=== PATIENT | male | born 1980 | race Caucasian/White ===

== ENCOUNTER 2020-12-01 11:19 | Day surgery (SDC) | payer OTHER, SELFPAY ==
[~2020-12-01] VITALS: Ht 180.3 cm; Wt 90.7 kg
[2020-12-01] MEDS ORDERED: BUPIVACAINE-MPF/EPI 0.25% 10 ML VIAL INJ ONE (12:53)
[2020-12-01] MEDS ORDERED: HYDROGEN PEROXIDE 3% 240 ML BTL TP ONE (12:53)
[2020-12-01] MEDS ORDERED: LIDOCAINE MPF 1% 10 ML ONE (12:53)
[2020-12-01] MEDS ORDERED: NEOSTIGMINE 1:1000 10 MG/10 ML VIAL ONE (13:28)
[2020-12-01] MEDS ORDERED: ROCURONIUM 50 MG/5 ML VIAL IV ONE (13:28)
[2020-12-01] MEDS ORDERED: LIDOCAINE 2% 100 MG/5 ML SYR IVP ONE (13:28)
[2020-12-01] MEDS ORDERED: KETOROLAC 30 MG/ML VIAL ONE (13:28)
[2020-12-01] MEDS ORDERED: GLYCOPYRROLATE 0.2 MG/ML VIAL ONE (13:28)
[2020-12-01] MEDS ORDERED: SUCCINYLCHOLINE CHLORIDE 200 MG/10 ML VIAL IVP ONE (13:28)
[2020-12-01] MEDS ORDERED: ONDANSETRON 4 MG/2 ML VIAL ONE (13:28)
[2020-12-01] MEDS ORDERED: PROPOFOL 200 MG/20 ML VIAL IV ONE (13:28)
[2020-12-01] MEDS ORDERED: fentaNYL citrate 0.05 MG/ML VIAL ONE (13:28)
[2020-12-01] MEDS ORDERED: MEPERIDINE 25 MG/ML SYR ONE (13:28)
[2020-12-01] MEDS ORDERED: DEXAMETHASONE 4 MG/ML VIAL ONE (13:28)
[2020-12-01] MEDS ORDERED: SEVOFLURANE 250 ML BTL INH ONE (13:28)
[2020-12-01] MEDS ORDERED: MEPERIDINE 25 MG/ML SYR IVP PRN (14:20)
[2020-12-01] MEDS ORDERED: ONDANSETRON 4 MG/2 ML VIAL IVP PRN (14:20)
[2020-12-01] MEDS ORDERED: diphenhydrAMINE 50 MG/ML VIAL IVP PRN (14:20)
[2020-12-01] MEDS ORDERED: HYDROcodone/APAP 5/325 MG 1 TAB TAB PO PRN (14:20)
[2020-12-01] MEDS ORDERED: LACTATED RINGERS 1,000 ML IV SCH (14:20)
[2020-12-01] MEDS ORDERED: fentaNYL citrate 0.05 MG/ML VIAL IVP PRN (14:20)
== END 2020-12-01 16:45 | disposition home or self-care (01) ==
LOC: MOR 11:19 → MMU 11:19 → MOR 16:45
PROVIDERS: ATTEND Surgery
DX: K61.0 Anal abscess (principal)
CPT/HCPCS: 46270; 71045; 87426; J0330; J1100; J1885; J2001; J2175; J2405; J2704; J2710; J3010; J3490; J7120

== ENCOUNTER 2020-12-22 06:15 | Day surgery (SDC) | payer OTHER, SELFPAY ==
[~2020-12-22] VITALS: Ht 180.3 cm; Wt 90.7 kg
[2020-12-22 06:24] VITALS: BP 137/84
--- NOTE | 2020-12-22 06:30 | NUR ---
ERMD AT BEDSIDE ASSESSING PATIENT.
--- NOTE | 2020-12-22 06:30 | NUR ---
40 YO/M REFERRED BY DR. WOODARD FOR ANAL FISTULA SURGERY. PATIENT CO SWELLING AND A BURNING PAIN 2/10 IN HIS ANAL AREA WITH MINIMAL BLEEDING. LBM 12/15/20. LAST MEAL 2229 ON 12/22/20. PMH: MONTSERRATIES WAQAR
--- NOTE | 2020-12-22 07:08 | NUR ---
MATT AND GERARDO COLLECTED AND GIVEN TO LAB.
--- NOTE | 2020-12-22 07:13 | NUR ---
REPORT GIVEN TO RENÉE SOUZA FOR TRANSFER OF CARE.
--- NOTE | 2020-12-22 07:14 | NUR ---
TRANSFER OF CARE AT THIS TIME FROM RENÉE COOK.
[2020-12-22 07:27] LABS: BASOPHILS # (AUTO) 0.1 K/uL (0.00-0.22); BASOPHILS % (AUTO) 0.8 % (0.0-2.0); EOSINOPHILS # (AUTO) 0.3 K/uL (0-0.4); EOSINOPHILS % (AUTO) 2.8 % (0.0-4.0); HEMOGLOBIN 13.6 g/dL (12.0-18.0); LYMPHOCYTES # (AUTO) 3.7 K/uL (2.0-11.5); LYMPHOCYTES % (AUTO) 33.8 % (20.5-51.1); MEAN CORPUSCULAR HEMOGLOBIN 29 pg (27-31); MEAN CORPUSCULAR HGB CONC 34 g/dL (33-37); MONOCYTES # (AUTO) 0.8 K/uL (0.8-1.0); MONOCYTES % (AUTO) 6.9 % (1.7-9.3); NEUTROPHILS # (AUTO) 6.1 K/uL (1.8-7.7); NEUTROPHILS % (AUTO) 55.7 % (42.2-75.2); PLATELET COUNT (AUTO) 298 K/uL (140-450); RED BLOOD CELL COUNT(AUTO) 4.65 MIL/uL (4.20-6.10); RED CELL DISTRIBUTION WIDTH 13.3 % (11.6-13.7)
[2020-12-22 07:43] LABS: ALBUMIN 4.4 g/dL (3.4-5.0); CARBON DIOXIDE 26.5 mmol/L (21-32); CREATININE 0.9 mg/dL (0.6-1.3); POTASSIUM 3.5 mmol/L (3.5-5.1); TOTAL BILIRUBIN 0.5 mg/dL (0.0-1.0)
--- NOTE | 2020-12-22 07:53 | NUR ---
PT AMBULATED TO BATHROOM, STEADY GAIT.
[2020-12-22] MEDS ORDERED: LIDOCAINE MPF 1% 10 ML ONE (08:00)
[2020-12-22] MEDS ORDERED: BUPIVACAINE-MPF/EPI 0.5% 30 ML VIAL INJ ONE (08:00)
[2020-12-22] MEDS ORDERED: HYDROGEN PEROXIDE 3% 240 ML BTL TP ONE (08:00)
[2020-12-22 08:02] LABS: PROTHROMBIN TIME 9.5 secs (10.8-13.4)
[2020-12-22 08:08] VITALS: BP 137/84
--- NOTE | 2020-12-22 08:43 | NUR ---
PATIENT HAS BEEN SCREENED AND CATEGORIZED LOW NUTRITION RISK. PATIENT WILL BE SEEN WITHIN 7 DAYS OF ADMISSION. 12/28/[address]
[2020-12-22] MEDS ORDERED: SEVOFLURANE 250 ML BTL INH ONE (08:49)
[2020-12-22] MEDS ORDERED: ONDANSETRON 4 MG/2 ML VIAL ONE (08:49)
[2020-12-22] MEDS ORDERED: fentaNYL citrate 0.05 MG/ML VIAL ONE (08:49)
[2020-12-22] MEDS ORDERED: GLYCOPYRROLATE 0.2 MG/ML VIAL ONE (08:49)
[2020-12-22] MEDS ORDERED: SUCCINYLCHOLINE CHLORIDE 200 MG/10 ML VIAL IVP ONE (08:49)
[2020-12-22] MEDS ORDERED: ROCURONIUM 50 MG/5 ML VIAL IV ONE (08:49)
[2020-12-22] MEDS ORDERED: KETOROLAC 30 MG/ML VIAL ONE (08:49)
[2020-12-22] MEDS ORDERED: LIDOCAINE 2% 100 MG/5 ML SYR IVP ONE (08:49)
[2020-12-22] MEDS ORDERED: PROPOFOL 200 MG/20 ML VIAL IV ONE (08:49)
[2020-12-22] MEDS ORDERED: DEXAMETHASONE 4 MG/ML VIAL ONE (08:49)
[2020-12-22] MEDS ORDERED: NEOSTIGMINE 1:1000 10 MG/10 ML VIAL ONE (08:49)
[2020-12-22] MEDS ORDERED: MEPERIDINE 25 MG/ML SYR ONE (08:49)
[2020-12-22] MEDS ORDERED: HYDROcodone/APAP 5/325 MG 1 TAB TAB PO PRN ×2 (09:25→09:45)
[2020-12-22] MEDS ORDERED: HYDROmorphone 1 MG/ML AMP IVP PRN (09:25)
[2020-12-22] MEDS ORDERED: LACTATED RINGERS 1,000 ML IV SCH (09:45)
[2020-12-22] MEDS ORDERED: MEPERIDINE 25 MG/ML SYR IVP PRN (09:45)
[2020-12-22] MEDS ORDERED: fentaNYL citrate 0.05 MG/ML VIAL IVP PRN (09:45)
[2020-12-22] MEDS ORDERED: ONDANSETRON 4 MG/2 ML VIAL IVP PRN (09:45)
== END 2020-12-22 11:26 | disposition home or self-care (01) ==
LOC: MED 06:15 → MDS 07:13 → MTU 07:13 → MDS 11:26
PROVIDERS: ATTEND Surgery
DX: K61.0 Anal abscess (principal); I44.7 Left bundle-branch block, unspecified; Z79.01 Long term (current) use of anticoagulants; Z79.899 Other long term (current) drug therapy
CPT/HCPCS: 36415; 46050; 71045; 80053; 85025; 85610; 86886; 86900; 86901; 87426; 93005; 99285; J0330; J1100; J1885; J2001; J2175; J2405; J2704; J2710; J3010; J3490; J7120

== ENCOUNTER 2021-02-14 05:45 | Day surgery (SDC) | payer OTHER ==
[~2021-02-14] VITALS: Ht 180.3 cm; Wt 90.7 kg
[2021-02-14] MEDS ORDERED: fentaNYL citrate 0.05 MG/ML VIAL ONE (07:26)
[2021-02-14] MEDS ORDERED: LACTATED RINGERS 1,000 ML IV SCH (07:45)
[2021-02-14] MEDS ORDERED: MEPERIDINE 25 MG/ML SYR IVP PRN (07:45)
[2021-02-14] MEDS ORDERED: oxyCODONE/APAP 5/325 MG 1 TAB TAB PO PRN (07:45)
[2021-02-14] MEDS ORDERED: diphenhydrAMINE 50 MG/ML VIAL IVP PRN (07:45)
[2021-02-14] MEDS ORDERED: ONDANSETRON 4 MG/2 ML VIAL IVP PRN (07:45)
[2021-02-14] MEDS ORDERED: BUPIVACAINE MPF 0.25% 10 ML VIAL INJ ONE (08:47)
[2021-02-14] MEDS ORDERED: LIDOCAINE MPF 1% 10 ML ONE (08:48)
[2021-02-14] MEDS ORDERED: ROCURONIUM 50 MG/5 ML VIAL IV ONE (08:51)
[2021-02-14] MEDS ORDERED: PROPOFOL 200 MG/20 ML VIAL IV ONE (08:51)
[2021-02-14] MEDS ORDERED: SUCCINYLCHOLINE CHLORIDE 200 MG/10 ML VIAL IVP ONE (08:51)
[2021-02-14] MEDS ORDERED: LIDOCAINE MPF 2% 100 MG/5 ML VIAL INJ ONE (08:51)
[2021-02-14] MEDS ORDERED: ONDANSETRON 4 MG/2 ML VIAL ONE (08:52)
[2021-02-14] MEDS ORDERED: METOCLOPRAMIDE 10 MG/2 ML INJ VIAL ONE (08:52)
[2021-02-14] MEDS ORDERED: DEXAMETHASONE 4 MG/ML VIAL ONE (08:52)
[2021-02-14] MEDS ORDERED: KETOROLAC 30 MG/ML VIAL ONE (08:52)
[2021-02-14] MEDS ORDERED: MEPERIDINE 25 MG/ML SYR ONE (08:53)
[2021-02-14] MEDS ORDERED: SEVOFLURANE 250 ML BTL INH ONE (08:55)
[2021-02-14] MEDS ORDERED: GLYCOPYRROLATE 0.2 MG/ML VIAL ONE (08:55)
[2021-02-14] MEDS ORDERED: NEOSTIGMINE 1:1000 10 MG/10 ML VIAL ONE (08:55)
[2021-02-14] MEDS ORDERED: LIDOCAINE 1% 500 MG/50 ML VIAL ONE (09:27)
[2021-02-14] MEDS ORDERED: BUPIVACAINE-MPF 0.25% 30 ML VIAL INJ ONE (09:27)
[2021-02-14] MEDS ORDERED: HYDROGEN PEROXIDE 3% 240 ML BTL TP ONE (09:31)
[2021-02-14] MEDS: fentaNYL citrate 0.05 MG/ML VIAL IVP PRN ×2 (10:54→11:04)
== END 2021-02-14 12:22 | disposition home or self-care (01) ==
LOC: MDS 05:45 → MMU 05:52 → MDS 12:22
PROVIDERS: ATTEND Surgery
DX: K60.3 Anal fistula (principal); E78.2 Mixed hyperlipidemia; I44.7 Left bundle-branch block, unspecified; Z79.899 Other long term (current) drug therapy
CPT/HCPCS: 46288; J0330; J1100; J1885; J2001; J2175; J2405; J2704; J2710; J2765; J3010; J3490; J7120

== ENCOUNTER 2021-10-05 06:00 | Day surgery (SDC) | payer OTHER ==
[~2021-10-05] VITALS: Ht 177.8 cm; Wt 90.7 kg
[2021-10-05] MEDS ORDERED: PROPOFOL 200 MG/20 ML VIAL IV ONE (07:48)
[2021-10-05] MEDS ORDERED: fentaNYL citrate 0.05 MG/ML VIAL ONE (07:48)
[2021-10-05] MEDS ORDERED: SUCCINYLCHOLINE CHLORIDE 200 MG/10 ML VIAL IVP ONE (07:51)
[2021-10-05] MEDS ORDERED: LIDOCAINE 1% 500 MG/50 ML VIAL ONE (07:55)
[2021-10-05] MEDS ORDERED: BUPIVACAINE-MPF 0.25% 30 ML VIAL INJ ONE (07:55)
[2021-10-05] MEDS ORDERED: HYDROGEN PEROXIDE 3% 240 ML BTL TP ONE (07:55)
[2021-10-05] MEDS ORDERED: diphenhydrAMINE 50 MG/ML VIAL IVP PRN (08:00)
[2021-10-05] MEDS ORDERED: HYDROmorphone 1 MG/ML AMP IVP PRN (08:00)
[2021-10-05] MEDS ORDERED: ONDANSETRON 4 MG/2 ML VIAL IVP PRN (08:00)
[2021-10-05] MEDS ORDERED: MEPERIDINE 25 MG/ML SYR IVP PRN (08:00)
[2021-10-05] MEDS ORDERED: LACTATED RINGERS 1,000 ML IV SCH (08:00)
[2021-10-05] MEDS ORDERED: SEVOFLURANE 250 ML BTL INH ONE (08:15)
[2021-10-05] MEDS ORDERED: MEPERIDINE 50 MG/ML SYR ONE (08:33)
[2021-10-05] MEDS ORDERED: DEXAMETHASONE 4 MG/ML VIAL ONE ×2 (08:38)
== END 2021-10-05 11:00 | disposition home or self-care (01) ==
LOC: MDS 06:00 → MMU 06:01 → EDSTATUS 08:45 → MDS 11:00
PROVIDERS: ATTEND Surgery
DX: K60.3 Anal fistula (principal); Z79.899 Other long term (current) drug therapy; Z20.822 Contact with and (suspected) exposure to COVID-19
CPT/HCPCS: 46270; 87426; 88305; 93005; J0330; J1100; J2001; J2175; J2704; J3010; J3490; J7120

== ENCOUNTER 2022-12-27 07:02 | Day surgery (SDC) | payer OTHER ==
[~2022-12-27] VITALS: Ht 180.3 cm; Wt 90.7 kg
[2022-12-27] MEDS ORDERED: BUPIVACAINE-MPF 0.25% 30 ML VIAL INJ ONE (09:21)
[2022-12-27] MEDS ORDERED: LIDOCAINE/EPI MPF 1%1:200000 30 ML VIAL INJ ONE (09:21)
[2022-12-27] MEDS ORDERED: HYDROGEN PEROXIDE 3% 240 ML BTL TP ONE (09:25)
[2022-12-27] MEDS ORDERED: LIDOCAINE 1% 500 MG/50 ML VIAL ONE (09:25)
[2022-12-27] MEDS ORDERED: SUCCINYLCHOLINE CHLORIDE 200 MG/10 ML VIAL IVP ONE (09:27)
[2022-12-27] MEDS ORDERED: PROPOFOL 200 MG/20 ML VIAL IV ONE (09:27)
[2022-12-27] MEDS ORDERED: DESFLURANE 240 ML BTL INH ONE (09:32)
[2022-12-27] MEDS ORDERED: fentaNYL citrate 0.05 MG/ML VIAL ONE (09:43)
[2022-12-27] MEDS ORDERED: ONDANSETRON 4 MG/2 ML VIAL ONE (09:51)
[2022-12-27] MEDS ORDERED: KETOROLAC 30 MG/ML VIAL ONE (09:51)
[2022-12-27] MEDS ORDERED: SUGAMMADEX SODIUM 200 MG/2 ML VIAL IV ONE (09:51)
[2022-12-27] MEDS ORDERED: ROCURONIUM 50 MG/5 ML VIAL IV ONE (09:51)
[2022-12-27] MEDS ORDERED: DEXAMETHASONE 4 MG/ML VIAL ONE (09:51)
[2022-12-27] MEDS ORDERED: ONDANSETRON 4 MG/2 ML VIAL IVP PRN (10:15)
[2022-12-27] MEDS ORDERED: HYDROmorphone 1 MG/ML AMP IVP PRN (10:15)
== END 2022-12-27 11:25 | disposition home or self-care (01) ==
LOC: MDS 07:02 → MMU 07:03 → MDS 11:25
PROVIDERS: ATTEND Surgery
DX: K60.3 Anal fistula (principal)
CPT/HCPCS: 46275; 71045; 93005; J0330; J1100; J1885; J2001; J2405; J2704; J3010; J3490; J7030